=== PATIENT | male | born 1945 ===

== ENCOUNTER 2024-02-26 20:08 | Inpatient (IN) | payer MEDICARE, OTHER ==
[~2024-02-26] VITALS: Ht 188 cm; Wt 77.0 kg
[2024-02-26] MEDS ORDERED: Acetaminophen 325 MG TABLET PO PRN (21:20)
[2024-02-26] MEDS ORDERED: Clopidogrel Bisulfate 75 MG Tab PO SCH (21:48)
[2024-02-26] MEDS ORDERED: Scopolamine Hydrobromide Patch TOP PRN (21:54)
[2024-02-26] MEDS ORDERED: Benzonatate 100 MG Cap PO PRN (21:55)
[2024-02-27] VITALS (15 sets, daily range): BP systolic 99–161; BP diastolic 59–89
[2024-02-27] MEDS ORDERED: Melatonin 3 MG Tab PO ONE (01:10)
[2024-02-27 05:21] LABS: BASOPHILS ABSOLUTE AUTO 0.06 K/mm3 (0.00-0.23); BASOPHILS PERCENT AUTO 1 % (0-2); EOSINOPHILS ABSOLUTE AUTO 0.07 K/mm3 (0.00-0.68); EOSINOPHILS PERCENT AUTO 1 % (0-6); Hematocrit 36.4 % (37.0-53.0); Hemoglobin 11.8 g/dL (13.5-17.5); IMMATURE GRAN ABSOLUTE AUTO 0.02 K/mm3 (0.00-0.10); IMMATURE GRAN PERCENT AUTO 0 % (0-1); LYMPHOCYTES ABSOLUTE AUTO 0.94 K/mm3 (0.84-5.20); LYMPHOCYTES PERCENT AUTO 12 % (21-46); MONOCYTES ABSOLUTE AUTO 0.63 K/mm3 (0.16-1.47); MONOCYTES PERCENT AUTO 8 % (4-13); Mean Corpuscular HGB 31.1 pg (26.0-34.0); Mean Corpuscular HGB Conc 32.4 g/dL (31.5-36.5); Mean Corpuscular Volume 96 fL (80-100); Mean Platelet Volume 11.3 fL (9.1-12.4); NEUTROPHILS PERCENT AUTO 79 % (41-73); Platelet Count 290 K/mm3 (150-400); RDW Coefficient Variation 13.6 % (11.7-14.2); RDW Standard Deviation 47.5 fL (35.1-46.3); White Blood Cell Count 8.02 K/mm3 (4.00-11.30)
[2024-02-27 05:49] LABS: Alanine Aminotransfer (ALT/SGP 23 U/L (12-78); Albumin, Blood 3.7 g/dL (3.4-5.0); Albumin/Globulin Ratio 1.1 (0.8-1.8); Alk Phos 69 U/L (50-136); Anion Gap 14 mmol/L (3-11); Aspartate Aminotrans (AST/SGOT 4 U/L (12-37); Bilirubin, Total 0.5 mg/dL (0.1-1.0); Blood Urea Nitrogen 79 mg/dL (8-24); CHOL/HDL RATIO 2.4; CO2, Blood 21 mmol/L (21-32); Chloride, Blood 104 mmol/L (98-108); Cholesterol 126 mg/dL (50-200); Creatinine, Blood 3.77 mg/dL (0.60-1.20); Globulin, Blood 3.3 g/dL (2.2-4.0); Glomerular Filtration Rate 16 (60-); Glucose, Blood 282 mg/dL (70-99); HDL Cholesterol 52 mg/dL (>39); LDL/HDL RATIO 1.1; Low Density Lipoprotein Chol 55 mg/dL (0-110); Magnesium, Blood 2.3 mg/dL (1.6-2.4); Phosphorus, Blood 5.3 mg/dL (2.5-4.9); Potassium, Blood 4.9 mmol/L (3.5-5.5); Sodium, Blood 134 mmol/L (136-145); Triglycerides 97 mg/dL (30-160); Very Low Density Lipoprot Chol 19 mg/dL (6-32)
[2024-02-27] MEDS ORDERED: Ondansetron HCl 2 MG / ML 2ML Vial IV PRN (06:00)
[2024-02-27] MEDS ORDERED: Bismuth Subsalicylate 240 ML BTL PO PRN (06:05)
[2024-02-27] MEDS ORDERED: Insulin Regular 100 UNIT/ML 10ML Vial SC SCH ×2 (06:15→16:30)
[2024-02-27] MEDS ORDERED: Anticoagulant Sod Citrate Soln 3 ML SYR INJ PRN (07:35)
[2024-02-27] MEDS ORDERED: Aspirin 81 MG TabEC PO SCH (09:00)
[2024-02-27] MEDS ORDERED: Atorvastatin 40 MG Tab PO SCH (09:00)
[2024-02-27] MEDS ORDERED: Calcium Carbonate 500 MG Tab Chew PO PRN (10:05)
[2024-02-27] MEDS ORDERED: Insulin Human Lispro 100 Units/ML 3ML Syringe SC SCH (17:30)
--- NOTE | 2024-02-27 19:38 | NUR ---
SHIFT SUMMARY NO ACUTE CHANGES THIS SHIFT. PT ABLE TO MAKE NEEDS KNOWN. L FACIAL DROOP NOTED. L SIDE WEAKNESS. SP02>90% ON RA. HACKING COUGH WHEN TALKING OFTEN. TELEMETRY SHOWS NSR, HR MOSTLY 70'S. 6 BEAT RUN OF VTACH THIS EVENING. PT DENIES PAIN. SPEECH IN ROOM TO EVALUATE SWALLOW, CLEARED PT, SEE ORDERS. DIALYSIS THIS AM. MRI THIS SHIFT, SEE RESULTS. PT SITTING IN CHAIR, IMPULSIVE. SITTER IN ROOM. CALL LIGHT IN REACH.
[2024-02-27] MEDS ORDERED: Insulin NPH 10 Unit/0.1ML (Single Dose) SC SCH (21:00)
[2024-02-27] MEDS ORDERED: Melatonin 3 MG Tab PO SCH (21:00)
[2024-02-28] VITALS (17 sets, daily range): BP systolic 106–146; BP diastolic 63–88
--- NOTE | 2024-02-28 04:47 | NUR ---
0445: Clinical sitter discontinued, patient following commands, redirecting appropriately.
--- NOTE | 2024-02-28 06:13 | NUR ---
Patient alert and oriented x4, VSS, resting comfortably in bed or recliner. Patient continues to display left sided weakness, left sided facial droop, slurred speech, intermittent coughing. Clinical sitter in place until 444, discontinued safely. Patient using call light to make needs known, bed alarm active while in bed, and ambulating with standby assistance using cane for bathroom needs.
[2024-02-28 06:57] LABS: Hematocrit 39.1 % (37.0-53.0); Hemoglobin 12.7 g/dL (13.5-17.5)
[2024-02-28 07:16] LABS: Albumin, Blood 3.8 g/dL (3.4-5.0); Anion Gap 11 mmol/L (3-11); Blood Urea Nitrogen 51 mg/dL (8-24); CO2, Blood 29 mmol/L (21-32); Calcium, Blood 8.9 mg/dL (8.5-10.1); Chloride, Blood 102 mmol/L (98-108); Creatinine, Blood 3.19 mg/dL (0.60-1.20); Glomerular Filtration Rate 19 (60-); Glucose, Blood 206 mg/dL (70-99); Magnesium, Blood 2.3 mg/dL (1.6-2.4); Phosphorus, Blood 4.3 mg/dL (2.5-4.9); Potassium, Blood 4.4 mmol/L (3.5-5.5); Sodium, Blood 138 mmol/L (136-145)
--- NOTE | 2024-02-28 16:48 | NUR ---
SHIFT SUMMARY PATIENT A/OX4. PATIENT WIHT LEFT SIDED WEAKNESS LOWER EXTREMITY>UPPER EXTREMITY, AND FACIAL DROOP. PATIENT WITH SLURRED SPEECH AND EXPRESSIVE APHASIA AT TIME, BUT ABLE TO MAKE NEEDS KNOWN AND CALL APPROPRIATELY. TELEMETRY IN PLACE WITH NO EVENTS NOTED. ECHOCARDIOGRAM COMPLETED THIS SHIFT. DENIES NAUSEA. HAS HAD NON PRODUCTIVE COUGH AND PRN T[place] PEARLS GIVEN X2. PATIENT ALSO HAD DIALYSIS THIS AM, NO OTHER CONCERNS AT THIS TIME.
[2024-02-28] MEDS ORDERED: Metoprolol Succinate 25 MG TABCR PO SCH (18:00)
[2024-02-28] MEDS ORDERED: Empagliflozin 10 MG TAB PO SCH (18:00)
[2024-02-29] VITALS (13 sets, daily range): BP systolic 117–140; BP diastolic 68–86
[2024-02-29 05:07] LABS: Hematocrit 37.5 % (37.0-53.0); Hemoglobin 12.3 g/dL (13.5-17.5)
[2024-02-29 05:31] LABS: Albumin, Blood 3.2 g/dL (3.4-5.0); Anion Gap 9 mmol/L (3-11); Blood Urea Nitrogen 43 mg/dL (8-24); Bun/Creatinine Ratio 14.3 (12.0-20.0); CO2, Blood 30 mmol/L (21-32); Calcium, Blood 8.1 mg/dL (8.5-10.1); Chloride, Blood 104 mmol/L (98-108); Glomerular Filtration Rate 21 (60-); Glucose, Blood 162 mg/dL (70-99); Magnesium, Blood 2.3 mg/dL (1.6-2.4); Phosphorus, Blood 3.5 mg/dL (2.5-4.9); Potassium, Blood 3.9 mmol/L (3.5-5.5); Sodium, Blood 139 mmol/L (136-145)
[2024-02-29] MEDS ORDERED: Anticoagulant Sod Citrate Soln 3 ML SYR INJ PRN (07:50)
[2024-02-29] MEDS ORDERED: Aspir 8181 MG PO (11:58)
[2024-02-29] MEDS ORDERED: MELA3 PO (11:59)
[2024-02-29] MEDS ORDERED: CLOP75 PO (11:59)
[2024-02-29] MEDS ORDERED: ATOR40TA PO (11:59)
[2024-02-29] MEDS ORDERED: METOPROLOL SUCC25 MG PO (12:00)
[2024-02-29] MEDS ORDERED: SEMGLEE (Y100 UNIT/2 SC (12:01)
[2024-02-29] MEDS ORDERED: PANT40 PO (12:02)
--- NOTE | 2024-02-29 15:25 | NUR ---
DISCHARGE NOTE PATIENT A/OX4, WITH EXPRESSIVE APHASIA AT TIME. LEFT SIDED WEAKNESS LOWER EXTREMITY>UPPER EXTREMITY AND LEFT SIDED FACIAL DROOP. PATIENT ABLE TO MAKE NEEDS KNOWN. PHYSICAL THERAPY ASSESSED PATIENT TODAY AND CLEARED HIM TO BE INDEPENDENT WITH AMBULATION IN HIS ROOM. PATIENT HAD DIALYSIS TODAY AROUND NOON. PATIENT PROVIDED EDUCATION REGARDING DISCHARGE INSTRUCTIONS INCLUDING MEDICATIONS AND REFERRALS TO PRIMARY CARE, CARDIOLOGY, AND NEPHROLOGY. PATIENT RECEPTIVE TO EDUCATION. PATIENT WITH NO QUESTIONS AT TIME OF DISCHARGE, WAS ASSISTED DOWNSTAIRS TO [place] WITH ALL BELONGINGS IN HAND.
== END 2024-02-29 15:17 | disposition home or self-care (01) | DRG 64 ==
LOC: MEDS 20:08
PROVIDERS: Family Medicine; Internal Medicine Nephrology; ADMIT Internal Medicine
PROC: 5A1D70Z Performance of Urinary Filtration, Intermittent, Less than 6 Hours Per Day (ICD-10-PCS; principal; 2024-02-28)
DX: I63.9 Cerebral infarction, unspecified (principal); N18.6 End stage renal disease; G81.94 Hemiplegia, unspecified affecting left nondominant side; E87.1 Hypo-osmolality and hyponatremia; I12.0 Hypertensive chronic kidney disease with stage 5 chronic kidney disease or end stage renal disease; R29.810 Facial weakness; E87.70 Fluid overload, unspecified; D63.1 Anemia in chronic kidney disease; E11.22 Type 2 diabetes mellitus with diabetic chronic kidney disease; I25.10 Atherosclerotic heart disease of native coronary artery without angina pectoris; E78.5 Hyperlipidemia, unspecified; Z99.2 Dependence on renal dialysis; I25.2 Old myocardial infarction; Z79.4 Long term (current) use of insulin
CPT/HCPCS: 36415; 70551; 80053; 80061; 80069; 82947; 83036; 83735; 84100; 85014; 85018; 85025; 92610; 93005; 93010; 97110; 97112; 97116; 97162; 97165; 97530; A9270; C8929; J1815; J2405; Q9957